=== PATIENT | male | born 1990 | race Caucasian/White ===

== ENCOUNTER 2019-11-19 09:46 | Emergency (ER) | payer MEDICAID ==
[~2019-11-19] VITALS: Ht 167.6 cm; Wt 81.8 kg
[2019-11-19] MEDS ORDERED: IBUPROFEN 600 MG TABLET PO ONE (10:30)
[2019-11-19] MEDS ORDERED: PERTUSS(ACELL),DIPH,TET VAC/PF 0.5 ML VIAL IM ONE (10:30)
[2019-11-19 11:25] VITALS: BP 134/80
== END 2019-11-19 11:58 | disposition home or self-care (01) ==
LOC: EMS 09:49
DX: S80.812A Abrasion, left lower leg, initial encounter (principal); M79.672 Pain in left foot; V23.4XXA Motorcycle driver injured in collision with car, pick-up truck or van in traffic accident, initial encounter; Y93.89 Activity, other specified; Y92.481 Parking lot as the place of occurrence of the external cause; Y99.8 Other external cause status
CPT/HCPCS: 90471; 90715